=== PATIENT | female | born 1960 | race African-American/Black ===

== ENCOUNTER 2017-01-21 19:52 | Emergency (ER) | payer OTHER ==
[~2017-01-21] VITALS: Ht 165.1 cm; Wt 65.8 kg
[~2017-01-21 19:52] MED LIST: ADDERALL XR 2020 MG PO; ALDACTONE25 MG PO; AMITIZA8 MCG PO; ASPIRIN EC81 M1; BENTYL 10 MG CA10 M1 PO; BUPROPION XL150 MG; CARISOPRODOL 3350 MG PO; ESTRACE1 MG PO; FLAGYL500 MG; HYDROCODON-ACE1 EAC7 PO; IBUPROFEN 600600 M1 PO; ROBINUL1 MG; VITAMIN D1000 UNI1; WELLBUTRIN XL300 M1 PO; ZESTRIL20 MG PO
[2017-01-21] MEDS ORDERED: CALCIUM 600 +1 EAC1 PO (20:15)
[2017-01-21] MEDS ORDERED: PROLIA60 MG/1 ML IM (20:15)
[2017-01-21 21:18] LABS: URINE BILIRUBIN NEGATIVE (Negative); URINE BLOOD NEGATIVE (Negative); URINE COLOR YELLOW; URINE GLUCOSE-RANDOM* NEGATIVE (Negative); URINE KETONES TRACE (Negative); URINE LEUKOCYTES-REFLEX TRACE (Negative); URINE PROTEIN (DIPSTICK) NEGATIVE (Negative); URINE UROBILINOGEN 0.2 E.U./dl (0.2-1.0)
[2017-01-21 21:40] LABS: ABSOLUTE NEUTROPHILS 2.9 thou/uL (1.4-8.2); BASOPHILS 0.6 % (0.0-2.0); EOSINOPHILS 2.3 % (0.0-3.0); HEMATOCRIT 37.1 % (37.0-47.0); HEMOGLOBIN 12.5 gm/dL (12.0-15.0); LYMPHOCYTES 45.7 % (24.0-44.0); MANUAL DIFF NO; MCH 31.6 pg (26.0-34.0); MCHC 33.7 g/dL (28.0-37.0); MCV 93.7 fL (80.0-100.0); MONOCYTES 7.4 % (1.0-8.0); PLATELET COUNT 200 thou/uL (150-400); RBC 3.97 mil/uL (4.20-5.00); RDW 13.2 % (10.5-14.5); WBC 6.5 thou/uL (4.0-11.0)
[2017-01-21 21:48] LABS: ANION GAP 5 mmol/L (7-16); BUN 11 mg/dL (7-18); CALCIUM 8.6 mg/dL (8.5-10.1); CHLORIDE 113 mmol/L (98-107); CO2 28 mmol/L (21-32); CREATININE 0.9 mg/dL (0.6-1.0); GLUCOSE 102 mg/dL (74-106); POTASSIUM 3.9 mmol/L (3.5-5.1); SODIUM 146 mmol/L (136-145)
[2017-01-21 21:54] LABS: ALKALINE PHOSPHATASE 41 U/L (46-116); DIRECT BILIRUBIN < 0.1 mg/dL (<0.1-0.3); SGOT 14 U/L (15-37); SGPT 25 U/L (30-65); TOTAL BILIRUBIN 0.1 mg/dL (<0.1-1.0); TOTAL PROTEIN 5.7 g/dL (6.4-8.2)
[2017-01-21] MEDS ORDERED: MOBIC15 MG PO (22:34)
[2017-01-21] MEDS ORDERED: NORCO 5-325 TA1 EACH PO (22:34)
[2017-01-21 22:39] VITALS: BP 124/85
== END 2017-01-21 23:08 | disposition home or self-care (01) ==
LOC: ER 19:52
PROVIDERS: Emergency Medicine
DX: R10.31 Right lower quadrant pain (principal); R19.7 Diarrhea, unspecified; I10 Essential (primary) hypertension; K21.9 Gastro-esophageal reflux disease without esophagitis; F10.99 Alcohol use, unspecified with unspecified alcohol-induced disorder; Z90.710 Acquired absence of both cervix and uterus; Z98.890 Other specified postprocedural states; Z88.5 Allergy status to narcotic agent; Z91.040 Latex allergy status; Z88.4 Allergy status to anesthetic agent; Z88.2 Allergy status to sulfonamides; Z88.8 Allergy status to other drugs, medicaments and biological substances

== ENCOUNTER → 2017-03-25 | Outpatient (CLI) | payer OTHER ==
[~2017-03-25] MED LIST changes: +CALCIUM 600 +1 EAC1 PO; +MOBIC15 MG PO; +NORCO 5-325 TA1 EACH PO; +PROLIA60 MG/1 ML IM
== END ==
LOC: NUC 08:09
DX: R11.0 Nausea (principal); R10.84 Generalized abdominal pain

== ENCOUNTER 2018-05-31 10:04 | Emergency (ER) | payer OTHER ==
[~2018-05-31] VITALS: Ht 165.1 cm; Wt 74.8 kg
[2018-05-31] MEDS ORDERED: TRAMADOL 50 MG50 MG PO (10:09)
[2018-05-31 12:00] VITALS: BP 136/77
== END 2018-05-31 12:01 | disposition home or self-care (01) ==
LOC: ER 10:04
DX: M25.551 Pain in right hip (principal); M79.651 Pain in right thigh; M54.6 Pain in thoracic spine; R51 Headache; M79.642 Pain in left hand; V89.2XXA Person injured in unspecified motor-vehicle accident, traffic, initial encounter; Y93.89 Activity, other specified; Y92.89 Other specified places as the place of occurrence of the external cause; Y99.8 Other external cause status

== ENCOUNTER → 2018-10-28 | Outpatient (CLI) | payer OTHER ==
[~2018-10-28] MED LIST changes: +TRAMADOL 50 MG50 MG PO
== END ==
LOC: NUC 07:34
DX: N28.1 Cyst of kidney, acquired (principal); R10.10 Upper abdominal pain, unspecified; R14.0 Abdominal distension (gaseous)

== ENCOUNTER → 2019-09-04 | Outpatient (CLI) | payer OTHER | LOC: CAT 10:14 | PROVIDERS: ATTEND Family Medicine | DX: Z13.6 Encounter for screening for cardiovascular disorders (principal); I25.10 Atherosclerotic heart disease of native coronary artery without angina pectoris; E78.00 Pure hypercholesterolemia, unspecified ==

== ENCOUNTER → 2020-02-12 | Outpatient (CLI) | payer OTHER | LOC: SJCVCIMAG 08:19 | PROVIDERS: ATTEND Internal Medicine Cardiovascular Disease | DX: R06.00 Dyspnea, unspecified (principal) ==